=== PATIENT | male | born 1960 | race Caucasian/White ===

== ENCOUNTER 2019-06-16 15:54 | Emergency (ER) | payer OTHER ==
[~2019-06-16] VITALS: Ht 177.8 cm; Wt 113.4 kg
[2019-06-16 16:03] VITALS: BP 195/81
[2019-06-16] MEDS ORDERED: LISINOPRIL10 MG PO (16:05)
[2019-06-16] MEDS ORDERED: LIPITOR40 MG PO (16:05)
[2019-06-16] MEDS ORDERED: ASPIR 8181 MG PO (16:05)
[2019-06-16] MEDS ORDERED: MEDROLDOSEPACK PO (16:21)
[2019-06-16] MEDS ORDERED: NORCO 5-325 TA1 EAC1 PO (16:21)
== END 2019-06-16 16:25 | disposition home or self-care (01) ==
LOC: M.ERS 15:54
DX: M54.32 Sciatica, left side (principal); I10 Essential (primary) hypertension; F17.210 Nicotine dependence, cigarettes, uncomplicated; Z88.6 Allergy status to analgesic agent